=== PATIENT | female | born 1955 | race African-American/Black ===

== ENCOUNTER → 2019-04-05 | Outpatient (CLI) | payer MEDICARE, MEDICAID ==
[~2019-04-05] MED LIST: IOHEXOL-300 100 ML BOTTLE ONE; PY50 PO; WARF7.5T22 PO
== END | disposition home or self-care (01) ==
LOC: US 07:15
PROVIDERS: ATTEND Surgery
DX: N63.10 Unspecified lump in the right breast, unspecified quadrant (principal)
CPT/HCPCS: 71270; 76641; C1893; Q9967

== ENCOUNTER 2023-01-14 14:28 | Emergency (ER) | payer MEDICARE, MEDICAID ==
[~2023-01-14] VITALS: Ht 170.2 cm; Wt 125.3 kg
[~2023-01-14 14:28] MED LIST changes: -IOHEXOL-300 100 ML BOTTLE ONE; -PY50 PO; +PYRI-9 PO
[2023-01-14 16:24] LABS: MEAN CORPUSCULAR HEMOGLOBIN 34.5 pg (28.0-32.0); MEAN CORPUSCULAR VOLUME 104.8 fL (81.0-99.0); PLATELET 182 x1000/uL (130-400); RED BLOOD CELL COUNT 1.83 mill/uL (4.2-5.4); RED CELL DISTRIBUTION WIDTH 17.5 % (11.6-14.6)
[2023-01-14 16:27] LABS: CHLORIDE 98 mEq/L (98-107)
[2023-01-14 16:42] LABS: HEMATOCRIT 19.2 % (36.0-48.0); HEMOGLOBIN 6.3 g/dL (12.0-16.0)
[2023-01-15] VITALS: BP 144/59
== END 2023-01-15 06:31 | disposition home or self-care (01) ==
LOC: ER 14:28
DX: D63.1 Anemia in chronic kidney disease (principal); R00.0 Tachycardia, unspecified
CPT/HCPCS: 36415; 36430; 80053; 85027; 86850; 86900; 86920; 93005; 99285; P9016